=== PATIENT | female | born 1990 | race Caucasian/White ===

== ENCOUNTER 2024-01-28 19:39 | Outpatient (REF) | payer BC, SELFPAY ==
[2024-02-03 10:13] LABS: Age Gdln ACOG Testing Note (.); HPV Aptima Negative (Negative); IGP, Aptima HPV, rfx 16/18,45 Note (.)
== END 2024-01-28 19:40 | disposition home or self-care (01) ==
LOC: LAB 19:39
PROVIDERS: Visit Provider Physician Assistant
DX: Z01.419 Encounter for gynecological examination (general) (routine) without abnormal findings (principal)
CPT/HCPCS: 87624; G0145

== ENCOUNTER 2025-06-01 21:39 | Outpatient (REF) | payer BC, SELFPAY ==
--- OUTSIDE RECORDS SUMMARY | 2025-06-01 15:00 | XMS_ITS | Encounter Summary ---
Author Organization [facility] Address [address] [place] [address] Care Team Providers Care Brick Grader Name Role Phone Unavailable Primary Care Provider Unavailabl e Reason for Visit * Reason Comments Well Women Visit Encounter Details Date Type Department Care Team (Late st Contact Info) Description 06/01/2025 3:00 PM EDT Office Visit [facility] [address] [place] [address] Sarah Peralta PA [address] [place], [facility] Well woman exam with routine gynecological exam; Yeast infection Social History Tobacco Use Types Packs/Day Years Used Date Smoking Tobacco: Never Alcohol Use Standard Drinks/Week Comments Yes 0 (1 standard drink = 0.6 oz pur e alcohol) occasional Comments No Sex and Gender Information Value Date Recorded Sex Assigned at Not on file Legal Sex Female 7:16 PM EDT Gender Identity Not on file Sexual Orientation Not on file documented as of this encounter Last Filed Vital Signs Vital Sign Reading Time Taken Comments Blood Pressure 114/70 06/01/2025 3:09 PM EDT Pulse - - Temperature - - Respiratory Rate - - Oxygen Saturation - - Inhaled Oxygen Concentration - - Weight 59.8 kg (131 lb 12.8 oz) 06/01/2025 3:09 PM EDT Height - - Body Mass Index 20.64 11/11/2022 12:00 PM EST documented in this encounter Progress Notes * KEILA Gonzalez - 06/01/2025 3:00 PM EDT Reason for Appointment: Patient ID: Dorothy Camarena is a 35 y.o. female who presents for Well Women Visit Patient presents today for Annual Exam. MEDICATIONS Current Outpatient Medications Medication Instructions doxycycline (VIBRAMYCIN) 100 mg, Oral, 2 times daily, Take with at least 8 ounces (large glass) of water, do not lie down for 30 minutes after fluconazole (DIFLUCAN) 150 mg, Oral, Weekly, This is a 1 time dose, take single tablet by mouth. norethindrone-ethinyl estradiol (10/24) 1-20 MG-MCG tablet 1 tablet, Oral, Daily ALLERGIES Allergies Allergen Reactions Sulfamethoxazole-Trimethoprim PROBLEMS Active Ambulatory Problems Diagnosis Date Noted No Active Ambulatory Problems Resolved Ambulatory Problems Diagnosis Date Noted No Resolved Ambulatory Problems Past Medical History: Diagnosis Date Acne Acute sinusitis Anterior neck pain Asthma (HCC) BCP ( control pills) initiation Dyspnea Encounter for female family planning counseling Fibrocystic breast GERD (gastroesophageal reflux disease) Globus syndrome Myalgia Pain pelvic Sinusitis Tachycardia Varicose veins of left lower extremity with pain Well woman exam HISTORY PAST MEDICAL HISTORY SOCIAL HISTORY Past Medical History: Diagnosis Date Acne Acute sinusitis Anterior neck pain Asthma (HCC) BCP ( control pills) initiation Dyspnea Encounter for female family planning counseling Fibrocystic breast GERD (gastroesophageal reflux disease) Globus syndrome Myalgia Pain pelvic Sinusitis Tachycardia Varicose veins of left lower extremity with pain Well woman exam Social History Tobacco Use Smoking status: Never Smokeless tobacco: Not on file Substance Use Topics Alcohol use: Yes Comment: occasional Drug use: Never FAMILY HISTORY Family History Problem Relation Name Age of Onset Diabetes Father Cancer Father bile duct Cancer Maternal Grandmother ovarian Heart disease Maternal Grandfather Cancer Paternal Grandfather liver, skin SURGICAL HISTORY No past surgical history on file. REVIEW OF SYSTEMS Review of Systems: Review of Systems Constitutional: Negative. HENT: Negative. Eyes: Negative. Respiratory: Negative. Cardiovascular: Negative. Gastrointestinal: Negative. Genitourinary: Negative. Musculoskeletal: Negative. Skin: Negative. Neurological: Negative. All other systems reviewed and are negative. Hematological: Negative. Endocrine: Negative. Allergic/Immunologic: Negative. OBJECTIVE Objective: Physical Exam Constitutional: Appearance: Normal appearance. Genitourinary: Right Adnexa: not tender and no mass present. Left Adnexa: not tender and no mass present. No cervical discharge. Breasts: Breasts are soft. Right: Normal. Left: Normal. HENT: Head: Normocephalic. Nose: Nose normal. Mouth/Throat: Mouth: Mucous membranes are moist. Cardiovascular: Rate and Rhythm: Normal rate. Pulmonary: Effort: Pulmonary effort is normal. Abdominal: General: Bowel sounds are normal. Palpations: Abdomen is soft. Musculoskeletal: General: Normal range of motion. Cervical back: Normal range of motion. Neurological: General: No focal deficit present. Mental Status: She is alert. Skin: General: Skin is warm and dry. Psychiatric: Mood and Affect: Mood normal. Vitals and nursing note reviewed. Exam conducted with a lamp shade assembler present. Vitals: Estimated body mass index is 20.64 kg/m?? as calculated from the following: Height as of 11/11/: 5' 7 . Weight as of this encounter: 131 lb 12.8 oz. BP: 114/70 No LMP recorded. ASSESSMENT & PLAN ICD-10-CM 1. Well woman exam with routine gynecological exam Z01.419 Pap Smear HPV DNA probe, amplified 2. Yeast infection B37.9 fluconazole (Diflucan) 150 MG tablet doxycycline (Vibramycin) 100 MG capsule 3. Infection due to Mycoplasma genitalium A49.3 doxycycline (Vibramycin) 100 MG capsule Annual Exam: Patient presents today for an annual exam. Patient states she is doing well and has no complaints. Pap was obtained without difficulty. Orders Placed This Encounter Procedures HPV DNA probe, amplified Patient cervix appears inflammed on exam and pt states she feels she has intermittent yeast infections. We will send in doxycycline for one week and diflucan. Patient to return with worsening symptoms. Follow Up: Patient is to return in one year for annual unless needed otherwise. Documented by KEILA Gonzalez on behalf of: KEILA Gonzalez documented in this encounter Plan of Treatment Scheduled Orders Name Type Priority Associated Diagnoses Orde r Schedule Pap Smear Pathology and Cytology Routine Well woman exam with routine gynecological exam Ordered: 06/01/2025 HPV DNA probe, amplified Microbiology Routine Well woman exam with routine gynecological exam Ordered: 06/01/2025 documented as of this encounter Visit Diagnoses Diagnosis Well woman exam with routine gynecological exam Routine gynecological examination Yeast infection documented in this encounter
--- OUTSIDE RECORDS SUMMARY | 2025-06-01 21:43 | XMS_ITS | CCD ---
Author Organization [facility] Inform ion Partnership [facility] Care Team Providers Care T[employer] Fabricator Name Role Phone Jayesh Damon Attending Unavailable Jayesh Damon Admitting Unavailable Nicki Avalos Primary Care Unavailable DR NICKI AVALOS Primary Care Unavailable BOO, DR AWAD Attending Unavailable DR DELMI ZUÑIGA Consulting Unavailable DR DELMI ZUÑIGA Admitting Unavailable SARAH VEGAS Attending Unavailable Unavailable Primary Care Provider SARAH Go Attending Unavailable SARAH VEGAS Attending Unavailable Allergies Allergy Classification Reported Allergen(s) Allergy Type Date of Onset Reaction(s) Facility (10 sources) Sulfamethoxazole / Trimethoprim Drug Allergy 6 [facility] Work Phone: Medications Current Medications Medication Drug Class(es) Dates Sig (Normalized) Sig (Original) doxycycline hyclate 100 mg oral capsule (4 sources) Tetracycline-clas s Drug Start: 06-01-2025 End: 06-08-2025 doxycycline (Vibramycin) 100 MG capsule Indications: Yeast infection Take 1 capsule (100 mg) by mouth in the morning and 1 capsule (100 mg) before bedtime. Do all this for 7 days. Take with at least 8 ounces (large glass) of water, do not lie down for 30 minutes after. 14 capsule 06/01/2025 06/08/2025 Active Ethinyl Estradiol / Ferrous fumarate / Norethindrone (10 sources) Estrogen Start: 04-24-2025 norethindrone-ethi nyl estradiol (10/24) 1-20 MG-MCG tablet Indications: control counseling Take 1 tablet by mouth Daily 28 tablet 3 04/24/2025 Active Start: 2024 norethindrone- ethinyl estradiol (10/24) 1-20 MG-MCG tablet Indications: control counseling Take 1 tablet by mouth Daily 28 tablet 12 2024 Active fluconazole 150 mg oral tablet (2 sources) Azole Antifungal Start: 06-01-2025 End: 06-09-2025 take 1 tablet by mouth every week, then take 1 tablet by mouth once fluconazole (Diflucan) 150 MG tablet Indications: Yeast infection Take 1 tablet (150 mg) by mouth 1 (one) time per week for 2 doses This is a 1 time dose, take single tablet by mouth. 2 tablet 2 06/01/2025 06/09/2025 Active Problems Problem Classification Problem Date Documented Date Episodic/Chronic Abdominal pain (1 source) Unspecified abdominal pain; Translations: [R10.9 - Unspecified abdominal pain] Onset: 02-03-2019 Episodic Immunizations and screening for infectious disease (1 source) Encounter for screening for human papillomavirus (HPV); Translations: [ENC SCREENING HUMAN PAPILLOMAVIRUS] Onset: 11-12-2022 Episodic Inflammatory diseases of female pelvic organs (2 sources) Bacterial vaginosis; Translations: [Acute vaginitis] 02-13-2025 Episodic Mycoses (2 sources) Mycosis; Translations: [Candidiasis, unspecified] 06-01-2025 Episodic Nonmalignant breast conditions (2 sources) Pain of breast; Translations: [Mastodynia] 10-13-2024 Episodic Other screening for suspected conditions (not mental disorders or infectious disease) (4 sources) Encounter for screening for malignant neoplasm of cervix; Translations: [ENC SCREENING MALIG NEOPLASM CERV] Onset: 11-11-2022 Episodic Residual codes; unclassified (2 sources) H/O: breast problem; Translations: [Personal history of other specified conditions] 10-13-2024 Episodic Unclassified (1 source) R11.0 - Nausea; Translations: [R11.0 - Nausea] Onset: 02-03-2019 Results Test Name Value Interpretation Reference Range Facility RECURRENT VAGINITIS (HTRX)on 02-15-2025 [facility] ATOPOBIUM VAGINAE Not detected [facility] BVAB 2,3 (BACTERIAL VAGINOSIS ASSOCIATED BACTERIA 2, 3); MOBILUNCUS SPP 0 [facility] BVAB 2,3 (BACTERIAL VAGINOSIS ASSOCIATED BACTERIA 2, 3); MOBILUNCUS SPP Not detected [facility] MARINA ALBICANS, PARAPSILOSIS, TROPICALIS 0 [facility] MARINA ALBICANS, PARAPSILOSIS, TROPICALIS Not detected [facility] MARINA GLABRATA 0 [facility] MARINA GLABRATA Not detected [facility] MARINA KRUSEI 0 [facility] MARINA KRUSEI Not detected [facility] CHLAMYDIA TRACHOMATIS 0 [facility] CHLAMYDIA TRACHOMATIS Not detected [facility] GARDNERELLA VAGINALIS 0 [facility] GARDNERELLA VAGINALIS Not detected [facility] MEGASPHAERA (TYPES 1, 2) 0 [facility] MEGASPHAERA (TYPES 1, 2) Not detected [facility] MYCOPLASMA GENITALIUM 0 [facility] MYCOPLASMA GENITALIUM Not detected [facility] NEISSERIA GONORRHOEAE 0 [facility] NEISSERIA GONORRHOEAE Not detected [facility] TRICHOMONAS VAGINALIS 0 [facility] TRICHOMONAS VAGINALIS Not detected [facility] HCG ( test) Ql (U)o n 02-13-2025 Interpretation and review of laboratory results Normal [facility] Preg Test, Ur Negative Negative [facility] Urinalysis macro (dipstick) panel (U)on 02-13-2025 Bilirubin, UA Negative Negative - 4(70) +++ mg/dL [facility] Blood, UA Positive Negative - 50 Srinivas/mcL [facility] Comment on above: trace Clarity, UA Clear [facility] re Color, UA Yellow [facility] Glucose, UA Negative Negative - 1999(110) ++++ mg/dL [facility] Interpretation and review of laboratory results Normal [facility] Ketones, UA Negative Negative - 160(16) ++++ mg/dL [facility] Leukocytes, UA Trace Negative - 500+++ Tamica/mcL [facility] Nitrite, UA Negative Negative - Positive [facility] pH, UA 6 5 - 9 [facility] Protein, UA Negative Negative - 1999(20) ++++ mg/dL [facility] Spec Grav, UA 1.005 1 - 1.03 [facility] Urobilinogen, UA 0.2 0.2 - 12 mg/dL [facility] Cytology Cervical or vaginal smear or scraping studyon 2024 [facility] PAP ACOG PANEL 2: 30 to 65on 11-19-2022 . . Normal [facility] Comment on above: Result Comment: Perf ormed at: WB Performed By: #### [id number] #### [facility] [address] [address] [address] Kelli Skinner Age Gdln ACOG Testing 30-65 Normal [facility] Comment on above: Performed By: #### [id number] #### [facility] [address] [address] [address] Kelli Skinner DIAGNOSIS: Comment Normal [facility] Comment on above: Result Comment: NEGA TIVE FOR INTRAEPITHELIAL LESION OR MALIGNANCY. THIS SPECIMEN WAS RESCREENED PART OF OUR VOICE TEACHER PROGRAM. Performed at: WB Performed By: #### [id number] #### [facility] [address] [place] [address] Dr. Kelli Skinner HPV Aptima Negative Normal Negative [facility] Comment on above: Result Comment: This nucleic acid amplification test detects fourteen high-risk HPV types (16,18,31,33,35,39,45,51,52,56,58,59,66,68) without differentiation. Performed at: =G Performed By: #### [id number] #### [facility] [address] [place] [address] Dr. Kelli Skinner HPV Genotype Reflex Comment Normal [facility] Comment on above: Result Comment: Crit eria not met, HPV Genotype not performed. Performed at: WB Performed By: #### [id number] #### [facility] [address] [place] [address] Dr. Kelli Skinner Methodology: Comment Normal [facility] Comment on above: Result Comment: This liquid based ThinPrep(R) pap test was screened with the use of an image guided system. Performed at: WB Performed By: #### [id number] #### [facility] [address] [place] [address] Dr. Kelli Skinner Note: Comment Normal [facility] Comment on above: Result Comment: The Pap smear is a screening test designed to aid in the detection of premalignant and malignant conditions of the uterine cervix. It is not a diagnostic procedure and should not be used as the sole means of detecting cervical cancer. Both false-positive and false-negative reports do occur. . Performed at: WB Performed By: #### [id number] #### [facility] [address] [address] [address] Kelli Skinner Performed by: Comment Normal [facility] Comment on above: Result Comment: Seble Aceves, Parer (ASCP) Performed at: WB Performed By: #### [id number] #### [facility] [address] [address] [address] Kelli Skinner QC reviewed by: Comment Normal [facility] Comment on above: Result Comment: Erik Dominguez, Parer Performed at: WB Performed By: #### [id number] #### [facility] [address] [address] [address] Kelli Skinner Specimen adequacy: Comment Normal [facility] Comment on above: Result Comment: Sati sfactory for evaluation. Endocervical and/or squamous metaplastic cells (endocervical component) are present. Performed at: WB Performed By: #### 4 [id number] #### [facility] [address] [address] [address] Kelli Skinner Consent for COVID Vaccineon 02-09-2021 SARS-CoV-2 (COVID-19) RNA FAUSTINO+probe Ql (Unsp spec) [id number] #1.00CD:127 Normal [facility] Consent for COVID Vaccineon 01-12-2021 SARS-CoV-2 (COVID-19) RNA FAUSTINO+probe Ql (Unsp spec) [id number]# 1.00CD:127 Normal [facility] Consent for Treatmenton 01-03 Consent for Treatment [id number]# 1.00CD:127 Normal [facility] Coding Summary.on 01-10-2021 Coding Summary. CODING DATE: 01/10/2021 FINAL [facility] STATUS: PAYOR: Anabel APC DESCRIPTION [employer] - Level 1B ($11-$20) ADMIT DX: REASON FOR VISIT DX: Z23 Encounter for immunization FINAL DX: PRINCIPAL: Z23 Encounter for immunization SECONDARY: PYMT PROC APC STAT DESCRIPTION DOCTOR NAME DATE NOTE: The code number assigned matches the documented diagnosis and / or procedure in the patient's chart. However, the narrative phrase printed from the coding software may appear abbreviated, or result in slightly different terminology. Coded By: Lindsay García Date Saved: 01/10/2021 10:56 am Normal [facility] CT abdomen pelvis w conon CT abdomen pelvis w con [facility] Main [place] [address] [place] [address] CT Scan Report Signed Patient: Dorothy Camarena MR#: [id number] : 1990 Acct:[id number] Age/Sex: 29 / F ADM Date: 02/03/19 Loc: CT Room: Type: [facility] Attending Dr: Jayesh Damon MD Ordering Provider: Jayesh Damon MD Date of Service: 02/03/19 CT/CT abdomen pelvis w con: Nausea;Abdominal pain Copies to: Jayesh Damon MD CT abdomen pelvis w con 02/03/2019 8:06 AM SIGNS AND SYMPTOMS: Nausea, abdominal pain, left upper quadrant pain TECHNIQUE: Multidetector ct axial images of the abdomen and pelvis were obtained with IV contrast. Multiplanar reformats were performed and reviewed to further define anatomy and possible pathology. CT was performed with one or more of the following dose reduction techniques: Automated exposure control, adjustment of the mA and/or kV according to patient size, or use of iterative reconstruction technique. Contrast: 67 mL of intravenous Isovue-300 COMPARISON: None. FINDINGS: Lower Chest: Within normal limits. ABDOMEN: Liver: There is a focal nonenhancing 9 mm hypoattenuation within the right hepatic lobe which may represent a cyst versus hemangioma. Bile Ducts: Normal caliber. Gallbladder: No calcified gallstones. Normal caliber wall. Pancreas: Within normal limits. Spleen: Within normal limits. Adrenals: Within normal limits. Kidneys: Within normal limits. Pelvis: Reproductive Organs: There is an intrauterine device within the endometrium. Ureters: Within normal limits. Bladder: Within normal limits. Bowel: Normal caliber. Mesenteric Lymph Nodes: No enlarged mesenteric lymph nodes. Peritoneum: There is a tiny amount of free fluid within the pelvis which may be physiologic in nature. Vessels: within normal limits Retroperitoneum: Within normal limits. Abdominal Wall: Within normal limits. Bones: Within normal limits. CT/CT abdomen pelvis w con IMPRESSION: No acute intra-abdominal pathology. There is a 9 mm cyst versus hemangioma within the right hepatic lobe. No evidence of bowel obstruction or obstructive uropathy. There is an intrauterine device with endometrium. There is also a small amount of free fluid in the pelvis which may be physiologic in nature. Impression dictated by: Rolando Owen M.D.02/03/2019 10:09 AM Dictation Location: [place] [address] Transcribed By: [facility] 02/03/19 1009 Dictated By: Rolando Owen II, MD 02/03/19 0978 Signed By: 02/03/19 1009 [facility] Vital Signs Date Time Vital Sign Value Performing Clinician Sam elliott 06-01-2025 15:09-0400 Body mass index (BMI) [Ratio] 20.64 kg/m2 Sarah Vegas PA Work Phone: [facility] 06-01-2025 15:09-0400 Body weight 59.78 kg Sarah Biggsey PA Work Phone: [facility] 06-01-2025 15:09-0400 Diastolic blood pressure 70 mm[Hg] Sarah Kathryn PA Work Phone: [facility] 06-01-2025 15:09-0400 Systolic blood pressure 114 mm[Hg] Sarah Binghamton PA Work Phone: [facility] 02-13-2025 13:15-0400 Body mass index (BMI) [Ratio] 20.36 kg/m2 Sarah Binghamton PA Work Phone: [facility] 02-13-2025 13:15-0400 Body weight 58.97 kg Sarah Kathryn PA Work Phone: [facility] 02-13-2025 13:15-0400 Diastolic blood pressure 68 mm[Hg] Sarah Biggsey PA Work Phone: [facility] 02-13-2025 13:15-0400 Systolic blood pressure 110 mm[Hg] Sarah PEDRAZA Work Phone: [facility] 10-13-2024 13:23-0500 Body mass index (BMI) [Ratio] 20.83 kg/m2 Sarah PEDRAZA Work Phone: [facility] 10-13-2024 13:23-0500 Body weight 60.33 kg Sarah PEDRAZA Work Phone: [facility] 10-13-2024 13:23-0500 Diastolic blood pressure 72 mm[Hg] Sarah PEDRAZA Work Phone: [facility] 10-13-2024 13:23-0500 Systolic blood pressure 112 mm[Hg] Sarah PEDRAZA Work Phone: [facility] Encounters Encounter Date Encounter Type Care Provider Facility Start: 06-01-2025 End: 06-01-2025 Patient encounter procedure Sarah PEDRAZA Work Phone: [facility] Work Phone: Start: 06-01-2025 End: 06-01-2025 Periodic preventive med est patient 18-39 yrs Sarah PEDRAZA Work Phone: [facility] Comment on above: Well woman exam with routine gynecological exam; Yeast infection Start: 06-01-2025 End: 06-01-2025 Bamboo flowsheet Sarah PEDRAZA Work Phone: [facility] Start: 06-01-2025 End: 06-01-2025 Bamboo flowsheet Sarah PEDRAZA Work Phone: [facility] Start: 02-13-2025 End: 02-13-2025 Bamboo flowsheet Sarah PEDRAZA Work Phone: [facility] Start: 02-13-2025 End: 02-15-2025 Bamboo flowsheet Sarah PEDRAZA Work Phone: [facility] Start: 02-13-2025 End: 02-15-2025 External Result Encounter Sarah PEDRAZA Work Phone: [facility] External Department Unsolicited Start: 02-13-2025 End: 02-13-2025 Office outpatient visit 15 minutes Sarah PEDRAZA Work Phone: [facility] Comment on above: BV (bacterial vagino sis) Start: 02-13-2025 End: 02-13-2025 ambulatory SARAH VEGAS Not Available Start: 10-13-2024 End: 10-13-2024 Bamboo flowsheet Sarah PEDRAZA Work Phone: [facility] Start: 10-13-2024 End: 10-13-2024 Bamboo flowsheet Sarah PEDRAZA Work Phone: [facility] Start: 10-13-2024 End: 10-13-2024 Office outpatient visit 15 minutes Sarah PEDRAZA Work Phone: [facility] Comment on above: Breast pain; History of fibrocystic disease of breast Start: 10-13-2024 End: 10-13-2024 ambulatory SARAH VEGAS Not Available Start: 2024 End: 2024 ambulatory SARAH VEGAS Not Available Start: 11-11-2022 End: 11-11-[address] NICKI AVALOS Facility: Start: 02-03-2019 End: 02-03-2019 Patient encounter procedure Jayesh [facility] Facility:[facility] Procedures Date Procedure Procedure Detail Performing Clinician Start: 02-13-2025 RECURRENT VAGINITIS (HTRX) Sarah PEDRAZA Work Phone: Start: 02-13-2025 Urnls dip stick/tabl et rgnt non-auto w/o micrscp Sarah PEDRAZA Work Phone: Start: 2024 Microscopic observat ion [Identifier] in Cervix by Cyto stain Sarah PEDRAZA Work Phone: Start: 2024 Cytp cerv/vag auto t hin layer prep mnl screen Sarah PEDRAZA Work Phone: Plan of Treatment Date Care Activity Detail Author Start: 01-27-2029 Screening for malign ant neoplasm of cervix [facility] Start: 06-05-2025 Influenza vaccination [facility] Start: 06-01-2025 End: 06-01-2025 Patient encounter procedure 06/01/2025 3:00 PM EDT Office Visit [facility] [address] [place] [phone] Sarah Vegas, PA [address] [place], [place] [id number] Arrived [facility] Comment on above: Arrived Start: 02-13-2025 End: 02-13-2025 Patient encounter procedure 02/13/2025 1:00 PM EDT Office Visit [facility] [address] [place] [phone] Sarah Vegas, PA [address] [place], [place] [id number] Arrived [facility] Comment on above: Arrived Start: 01-30-2025 End: 01-30-2025 Patient encounter procedure 01/30/2025 9:00 AM EDT Office Visit [facility] [address] [place] [phone] Delmi Zuñiga DO [address] [place], [place] [id number] [facility] Start: 10-13-2024 End: 12-11-2025 MG Breast - bilateral Diagnostic Bilateral diagnostic mammogram Imaging Routine Breast pain History of fibrocystic disease of breast Expected: 10/13/2024 (Approximate), Expires: 12/11/2025 [facility] Work Phone: Comment on above: Expected: 10/13/2024 (Approximate), Expires: 12/11/2025 Start: 10-13-2024 End: 10-13-2024 Patient encounter procedure 10/13/2024 1:30 PM EST Office Visit [facility] [address] [phone] Sarah Vegas PA [address] [place] [address] [place] [address] Arrived [facility] Comment on above: Arrived Start: 06-05-2024 Influenza vaccination Influenza Vacc ine (#1) [facility] Start: 2019 Screening for malign ant neoplasm of cervix [facility] Start: 2010 Screening for malign ant neoplasm of cervix Pap Smear [facility] CHLAMYDIA TRACHOMATI S (GENITO/STI) CHLAMYDIA TRACHOMATIS (GENITO/STI) Lab Routine BV (bacterial vaginosis) Ordered: 02/13/2025 [facility] Comment on above: Ordered: 02/13/2025 Cytology Cervical or vaginal smear or scraping study Pap Smear Pathology and Cytology Routine Well woman exam with routine gynecological exam Ordered: 06/01/2025 [facility] Work Phone: Comment on above: Ordered: 06/01/2025 Human papilloma viru s DNA [Presence] in Unspecified specimen by Probe with amplification HPV DNA probe, amplified Microbiology Routine Well woman exam with routine gynecological exam Ordered: 06/01/2025 [facility] Comment on above: Ordered: 06/01/2025 Neisseria gonorrhoea e DNA [Presence] in Unspecified specimen by FAUSTINO with probe detection Neisseria gonorrhea DNA probe, direct Lab Routine BV (bacterial vaginosis) Ordered: 02/13/2025 [facility] Comment on above: Ordered: 02/13/2025 SURESWAB(R) ADVANCED VAGINITIS PLUS, TMA SURESWAB(R) ADVANCED VAGINITIS PLUS, TMA Pathology and Cytology Routine BV (bacterial vaginosis) Ordered: 02/13/2025 [facility] Work Phone: Comment on above: Ordered: 02/13/2025 Payers Date Payer Category Payer Self-pay 2017 [facility] [id number] 2017 Unknown [id number] 1990 Unknown [id number] [id number] [id number] 1990 Unknown [id number] 2.16.84 [id number] 1989 Unknown [id number] 2.16.84 [id number] 1989 Unknown [id number] 2.16.84 [id number] 1959 Unknown [id number] Unknown [id number] 2.16.84 [id number] Social History Date Type Detail Facility Start: 10-22-2023 Tobacco smoking stat [facility] Never smoked tobacco [facility] Start: 10-13-2024 End: 02-13-2025 Alcoholic beverage intake Current drinker of alcohol (finding) [facility] Start: 10-22-2023 End: 10-13-2024 History of Social function [facility] Start: 10-22-2023 End: 10-13-2024 Tobacco use panel [facility] Start: 10-22-2023 Alcohol Comment occasional [facility] Start: 1990 Sex assigned at Not on file [facility] History of Present illness Narrative 06-01-2025 KEILA Gonzalez - 06/01/2025 3:00 PM EDT Note Date & Type Note Facility 06-01-2025 History of Presen t illness Narrative Reason for Appointment: Patient ID: Dorothy Camarena [...] nursing note reviewed. Exam conducted with a telephone station installer present. Vitals: Estimated body mass index is 20.64 kg/m as calculated from the following: Height as of 11/11/22: 5' 7 . Weight as of this [...] of: KEILA Gonzalez documented in this encounter [facility] History of Present illness Narrative 02-13-2025 KEILA Gonzalez - 02/13/2025 1:00 PM EDT Note Date & Type Note Facility 02-13-2025 History of Presen t illness Narrative Reason for Appointment: Patient ID: Dorothy Camarena is a 35 y.o. female who presents for STI Screening (Pt present today for BV f/up visit. Pt called office on 02/03/2025 with BV issues and medication was sent to pharmacy for patient. Pt advised if symptoms does not go away to come in office to be seen. Pt states there is no improvement.) Patient presents today for STD Check. MEDICATIONS Current Outpatient Medications Medication Instructions norethindrone-ethinyl estradiol (10/24) 1-20 MG-MCG tablet 1 tablet, Oral, Daily ALLERGIES Allergies Allergen Reactions Sulfamethoxazole-Trimethoprim PROBLEMS Active Ambulatory Problems Diagnosis Date Noted No Active Ambulatory Problems Resolved Ambulatory Problems Diagnosis Date Noted No Resolved Ambulatory Problems Past Medical History: Diagnosis Date Acne Acute sinusitis Anterior neck pain Asthma BCP ( control pills) initiation Dyspnea Encounter for female family planning counseling Fibrocystic breast GERD (gastroesophageal reflux disease) Globus syndrome Myalgia Pain pelvic Sinusitis Tachycardia Varicose veins of left lower extremity with pain Well woman exam HISTORY PAST MEDICAL HISTORY SOCIAL HISTORY Past Medical History: Diagnosis Date Acne Acute sinusitis Anterior neck pain Asthma BCP ( control pills) initiation Dyspnea Encounter [...] Cancer Paternal Grandfather liver, skin SURGICAL HISTORY History reviewed. No pertinent surgical history. REVIEW OF SYSTEMS Review of Systems: Review of Systems Constitutional: Negative for chills and fever. HENT: Negative for sore throat. Gastrointestinal: Negative for abdominal pain, constipation, nausea and vomiting. Genitourinary: Negative for dysuria, flank pain, frequency, pelvic pain, urgency and vaginal discharge. Musculoskeletal: Negative for back pain. Skin: Negative for rash. All other systems reviewed and are negative. OBJECTIVE Objective: Physical Exam Constitutional: Appearance: Normal [...] nursing note reviewed. Exam conducted with a telephone station installer present. Vitals: Estimated body mass index is 20.36 kg/m as calculated from the following: Height as of 11/11/22: 5' 7 . Weight as of this encounter: 130 lb. BP: 110/68 Patient's last menstrual period was 01/22/2025 (approximate). ASSESSMENT & PLAN ICD-10-CM 1. BV (bacterial vaginosis) N76.0 B96.89 Patient present today due to having vaginal discharge and some itching. Pt states she tried OTC medication and no change then was given rx sent to pharmacy. However, patient does not feel no improvement and is requesting cx's. Pt is aware that results will take 1-2 days to come back. Pt is currently not taking the oral b/c, however would like to keep her rx on her chart incase she decides to start back up on it. Cx's were collected by Sarah Vegas. Documented by Hafsa Sandoval MA on behalf of: KEILA Gonzalez documented in this encounter [facility] History of Present illness Narrative 10-13-2024 KEILA Gonzalez - 10/13/2024 1:30 PM EST Note Date & Type Note Facility 10-13-2024 History of Presen t illness Narrative Images from the original note were not included. Reason for Appointment: Patient ID: Dorothy Camarena is a 34 y.o. female who presents for Breast Pain (PT present today for Left sided breast pain) Patient presents today for Left breast pain MEDICATIONS Current Outpatient Medications Medication Instructions norethindrone-ethinyl estradiol (10/24) 1-20 MG-MCG tablet 1 tablet, Oral, Daily ALLERGIES Allergies Allergen Reactions Sulfamethoxazole-Trimethoprim PROBLEMS Active Ambulatory Problems Diagnosis Date Noted No Active Ambulatory Problems Resolved Ambulatory Problems Diagnosis Date Noted No Resolved Ambulatory Problems Past Medical History: Diagnosis Date Acne Acute sinusitis Anterior neck pain Asthma (CMS/HCC) BCP ( control pills) initiation Dyspnea Encounter for female family planning counseling Fibrocystic breast GERD (gastroesophageal reflux disease) Globus syndrome Myalgia Pain pelvic Sinusitis Tachycardia Varicose veins of left lower extremity with pain Well woman exam HISTORY PAST MEDICAL HISTORY SOCIAL HISTORY Past Medical History: Diagnosis Date Acne Acute sinusitis Anterior neck pain Asthma (CMS/HCC) BCP ( control pills) initiation Dyspnea Encounter [...] Cancer Paternal Grandfather liver, skin SURGICAL HISTORY History reviewed. No pertinent surgical history. REVIEW OF SYSTEMS Review of Systems: Review of Systems Constitutional: Negative. HENT: Negative. Eyes: Negative. Respiratory: Negative. Cardiovascular: Negative. Gastrointestinal: Negative. Genitourinary: Negative. Musculoskeletal: Negative. Skin: Negative. Neurological: Negative. All other systems reviewed and are negative. Hematological: Negative. Endocrine: Negative. Allergic/Immunologic: Negative. OBJECTIVE Objective: Physical Exam Constitutional: Appearance: Normal appearance. She is normal weight. Genitourinary: Genitourinary Comments: Tenderness, fibrocystic changes HENT: Head: Normocephalic. Cardiovascular: Rate and Rhythm: Normal rate. Pulses: Normal pulses. Pulmonary: Effort: Pulmonary effort is normal. Breath sounds: Normal breath sounds. Chest: Abdominal: Palpations: Abdomen is soft. Musculoskeletal: General: Normal range of motion. Neurological: General: No focal deficit present. Mental Status: She is alert and oriented to person, place, and time. Psychiatric: Mood and Affect: Mood normal. Behavior: Behavior normal. Thought Content: Thought content normal. Judgment: Judgment normal. Vitals and nursing note reviewed. Vitals: Estimated body mass index is 20.36 kg/m as calculated from the following: Height as of 11/11/22: 5' 7 . Weight as of 01/28/24: 130 lb. BP: No LMP recorded. ASSESSMENT & PLAN ICD-10-CM 1. Breast pain N64.4 Pt present today for left breast pain. Pt has noticed this is around cycles and she does drink caffeine. Patient encouraged to monitor this. Patient was to use Aspercreame and Vitamin oil. Patient does experience pain in nipple. We will do Diagnostic mammogram and follow up as needed Documented by Hafsa Sandoval MA on behalf of: KEILA Gonzalez documented in this encounter [facility] Evaluation note Note Date & Type Note Facility Evaluation note Diagnosis Breast pain Mastodynia History of fibrocystic disease of breast documented in this encounter [facility] Healthcare Evaluation note Note Date & Type Note Facility Evaluation note Diagnosis BV (bacterial vaginosis) Unspecified vaginitis and vulvovaginitis documented in this encounter [facility] Healthcare Evaluation note Note Date & Type Note Facility Evaluation note Diagnosis Well woman exam with routine gynecological exam Routine gynecological examination Yeast infection documented in this encounter [facility] Healthcare Summary Purpose Family History No Family History Records FoundNo Family History Records FoundNo Family History Records FoundNo Family History Records FoundNo Family History Records Found Advance Directives No Advanced Directives Records FoundNo Advanced Directives Records FoundNo Advanced Directives Records FoundNo Advanced Directives Records FoundNo Advanced Directives Records Found Additional Source Comments INFORMATION SOURCE (unrecogn ized section and content) DATE CREATED AUTHOR 02/21/2019 [facility] DATE CREATED AUTHOR AUTHOR'S ORGANIZ ATION 04/26/2021 [facility] DATE CREATED AUTHOR AUTHOR'S ORGANIZ ATION 11/19/2022 [facility] DATE CREATED AUTHOR AUTHOR'S ORGANIZ ATION 01/29/2024 [facility] DATE CREATED AUTHOR AUTHOR'S ORGANIZ ATION 02/14/2025 [facility] Reason for Visit (unrecogniz ed section and content) Reason Comments Breast Pain PT present today for Left sided breast pain Reason Comments STI Screening Pt present today for BV f/up visit. Pt called office on 02/03/2025 with BV issues and medication was sent to pharmacy for patient. Pt advised if symptoms does not go away to come in office to be seen. Pt states there is no improvement. Reason Comments Well Women Visit FOR RECORDS PERTAINING TO PATIENTS WHO ARE OR HAVE BEEN ENROLLED IN A CHEMICAL DEPENDENCY/SUBSTANCEABUSE PROGRAM, SOME INFORMATION MAY BE OMITTED. This clinical summary was aggregated from multiple sources. Caution should be exercised in using it in the provision of clinical care. This summary normalizes information from multiple sources, and as a consequence, information in this document may materially change the coding, format and clinical context of patient data. In addition, data may be omitted in some cases. CLINICAL DECISIONS SHOULD BE BASED ON THE PRIMARY CLINICAL RECORDS. [facility] [employer] [facility] provides no warranty or guarantee of the accuracy or completeness of information in this document.
--- OUTSIDE RECORDS SUMMARY | 2025-06-01 21:44 | XMS_ITS | Clinical Summary ---
Author Organization [employer] Address [id number] [address] [place] [address] Care Team Providers Care Performance Improvement Specialist Name Role Phone Nicki Summers MD Primary Care Provider [phone] Allergies Active Allergy Reactions Criticality Noted Date Comments Sulfamethoxazole-Trimethoprim 2015 Medications VIT CALC,IRON,FOLIC ( VITAMIN ORAL) Take 1 tablet by mouth daily. Active Active Problems Problem Noted Date Diagnosed Date Placental problem suspected but not found 2015 Family History Medical History Relation Name Comments Diabetes Father Hepatitis Father Kidney disease Father Ovarian cancer Maternal Grandmother No Known Problems Mother Liver cancer Paternal Grandfather Relation Name Status Comments Father Maternal Grandmother Mother Paternal Grandfather Social History Tobacco Use Types Packs/Day Years Used Date Smoking Tobacco: Never Alcohol Use Standard Drinks/Week Comments No 0 (1 standard drink = 0.6 oz pur e alcohol) Childcare Answer Date Recorded Childcare Unknown 03/15/2019 Employment Answer Date Recorded Employment Unknown 03/15/2019 Purpose - Life Answer Date Recorded Purpose and direction in life Unknown Comments No Sex and Gender Information Value Date Recorded Sex Assigned at Not on file Legal Sex Female 7:17 PM EDT Gender Identity Not on file Sexual Orientation Not on file Last Filed Vital Signs Vital Sign Reading Time Taken Comments Blood Pressure 111/71 09/22/2016 8:46 AM EST Pulse 81 09/22/2016 8:46 AM EST Temperature - - Respiratory Rate 16 09/22/2016 8:46 AM EST Oxygen Saturation - - Inhaled Oxygen Concentration - - Weight 61.7 kg (136 lb) 09/22/2016 8:46 AM EST Height 170.2 cm (5' 7 ) 09/22/2016 8:46 AM EST Body Mass Index 21.3 09/22/2016 8:46 AM EST Plan of Treatment Health Maintenance Due Date Last Done Comments Depression Screening 2001 Tobacco Screening 2001 Adult BMI Screening 2007 DTaP,Tdap and Td Vaccines (1 - Tdap) 01/29/2008 Pap Smear 2010 Influenza Vaccine 06/05/2025 Medical Devices Not on file Insurance ANTHEM Care Teams Performance Improvement Specialist Relationship Specialty Start Date End Date Nicki Summers MD [address] [id number] PCP - General 09/22/16
--- OUTSIDE RECORDS SUMMARY | 2025-06-01 21:44 | XMS_ITS | Encounter Summary ---
Author Organization [facility] Address [address] [place] [address] Care Team Providers Care Seam Stayer Name Role Phone Unavailable Primary Care Provider Debbie e Encounter Details Date Type Department Care Team (Latest Contact Info) Description 06/01/2025 Travel Social History Tobacco Use Types Packs/Day Years [...] on file documented as of this encounter Plan of Treatment Not on file documented as of this encounter Visit Diagnoses Not on filedocumented in this encounter
--- OUTSIDE RECORDS SUMMARY | 2025-06-01 21:44 | XMS_ITS | Encounter Summary ---
Author Organization [facility] Address [address] [place] [address] Care Team Providers Care Sandwich Wrapper Name Role Phone Unavailable Primary Care Provider Debbie e Encounter Details Date Type Department Care Team (Late st Contact Info) Description 06/01/2025 Bamboo flowsheet [facility] [address] [place] [address] Sarah Peralta PA [address] [place], [id number] Social History Tobacco Use Types Packs/Day Years [...]
[2025-06-07 13:08] LABS: Age Gdln ACOG Testing Note (.); IGP, Aptima HPV, rfx 16/18,45 Note (.)
== END 2025-06-01 21:40 | disposition home or self-care (01) ==
LOC: LAB 21:39
PROVIDERS: Visit Provider Physician Assistant
DX: Z01.419 Encounter for gynecological examination (general) (routine) without abnormal findings (principal)
CPT/HCPCS: 87624; 88175